=== PATIENT | male | born 1990 | race African-American/Black ===

== ENCOUNTER 2020-06-22 10:26 | Emergency (ER) | payer SELFPAY ==
[~2020-06-22] VITALS: Ht 182.9 cm; Wt 100.0 kg
[2020-06-22 10:31] VITALS: BP 133/84
[2020-06-22] MEDS ORDERED: LIDOCAINE HCL 1% 20ML VIAL (Pyxis) INJ INFIL ONE (11:15)
== END 2020-06-22 12:10 | disposition home or self-care (01) ==
LOC: EDSEX 10:26 → ER 10:53
DX: T16.1XXA Foreign body in right ear, initial encounter (principal); X58.XXXA Exposure to other specified factors, initial encounter; Y93.89 Activity, other specified; Y92.89 Other specified places as the place of occurrence of the external cause; R03.0 Elevated blood-pressure reading, without diagnosis of hypertension
CPT/HCPCS: 99283; J3490; 99282